=== PATIENT | male | born 1980 | race Caucasian/White ===

== ENCOUNTER 2017-12-02 10:06 | Outpatient (CLI) | payer BC ==
--- NOTE | 2017-12-02 10:33 | RAD ---
RIGHT ELBOW 4 VIEWS: HISTORY: Pain. COMPARISON: None. FINDINGS: No joint effusion. No fracture or malalignment. IMPRESSION: No fracture or malalignment. POS: [facility]
== END 2017-12-02 10:07 | disposition home or self-care (01) ==
LOC: MADRAD 10:06
PROVIDERS: ATTEND Family Medicine
DX: M25.521 Pain in right elbow (principal)